=== PATIENT | female | born 1970 | race Caucasian/White ===

== ENCOUNTER 2019-04-15 01:05 | Emergency (ER) | payer SELFPAY ==
[~2019-04-15] VITALS: Ht 157.5 cm; Wt 63.7 kg
[2019-04-15 01:11] VITALS: BP 157/74; PULSE 93; RESP 16; Ht 157.5 cm; Wt 63.7 kg
== END 2019-04-15 01:42 | disposition left against medical advice (07) ==
LOC: FTE 01:05
DX: Z53.21 Procedure and treatment not carried out due to patient leaving prior to being seen by health care provider (principal)